=== PATIENT | female | born 1965 | race Caucasian/White ===

== ENCOUNTER 2019-04-24 19:42 | Observation (INO) ==
[2019-04-24] MEDS ORDERED: SODIUM CHLORIDE 0.9% 1000ML 1,000 ML IV ONE (20:49)
[2019-04-24 21:06] LABS: iSTAT Creatinine 0.5 mg/dl (0.6-1.3); iSTAT Hemoglobin 12.9 g/dl (12.0-16.0); iSTAT Ionized Calcium 1.17 mmol/l (1.12-1.32); iSTAT Potassium 3.9 mEq/L (3.3-5.0)
[2019-04-24 21:24] LABS: Basophils # (auto) 0.02 K/uL (0-0.2); Basophils % (auto) 0.4 %; Eosinophils # (auto) 0.09 K/uL (0-0.5); Eosinophils % (auto) 1.6 %; Hemoglobin 12.9 g/dL (12.0-16.0); Immature Granulocytes # (auto) 0.01 K/uL (0.00-0.02); Immature Granulocytes % (auto) 0.2 %; Lymphocytes # (auto) 2.02 K/uL (1.2-3.4); Lymphocytes % (auto) 36.8 %; Mean Corpuscular Hemoglobin 32.2 pg (25-34); Mean Corpuscular Hgb Conc 33.9 g/dL (32-36); Mean Corpuscular Volume 94.8 fL (80-100); Mean Platelet Volume 11.1 fL (7.4-10.4); Monocytes # (auto) 0.53 K/uL (0.11-0.59); Monocytes % (auto) 9.7 %; Neutrophils # (auto) 2.82 K/uL (1.4-6.5); Neutrophils % (auto) 51.3 %; Platelet Count 226 K/uL (130-400); RDW Coefficient of Variation 12.8 % (11.5-14.5); RDW Standard Deviation 44.5 fL (36.4-46.3); Red Blood Count 4.01 M/uL (4.2-5.4); White Blood Count 5.49 K/uL (4.8-10.8)
[2019-04-24 21:41] LABS: Albumin Level 3.8 gm/dl (3.4-5.0); BUN Creatinine Ratio 18.7 (10-20); Calcium 8.8 mg/dl (8.5-10.1); Creatinine Clr Calc Pharmacy 111.1 ml/min; Est GFR (African American) 115.3; Est GFR (Non-African American) 99.4; Potassium 3.9 mmol/L (3.5-5.1)
[2019-04-24 21:44] LABS: Albumin Globulin Ratio 1.2 (0.9-2); Bilirubin,Total 0.2 mg/dl (0.2-1); Globulin 3.2 gm/dl (2.5-4.0)
--- NOTE | 2019-04-24 21:51 | History & Physical Report ---
Date of Service April 24, 2019 Assessment & Plan (1) Vaginal bleeding: (2) Postoperative vaginal bleeding following genitourinary procedure: discussed with patient that given findings, i feel its prudent to do eua and will need to find bleeding source to repair. she ate last at 7pm. she is aware it is possible she will need laparoscopy as well. I doubt intraperitoneal bleeding given her abdominal exam and no symptoms. I suspect the blood vessel is loose at the cuff and hopeful can be managed with vaginal repairs alone. She is agreeable. Discussed management of constipation. She will be readied for OR. Or and anesthesia aware. Consent reviewed and signed. Discussed risks, alternatives and complications to include but not limited to bleeding, infection, anesthesia, injury to bowel, bladder, vessels, nerves, ureters, delayed complications, additional procedures or hospitalizations needed, deep venous thrombosis or pulmonary embolism, need for further surgeries or procedures. History of Present Illness Chief Complaint: vaginal bleeding Primary Care Provider: JENNIFER REN 53yo who presents to ER with above CC who I am asked to see in consult by Dr. Billings. Patient notes recent dx of endometrial cancer with TLH/BSO and node sampling done in [place], [place] by [facility] oncology. She had her 2 week postoperative visit and was doing well. She then noted some spotting that was light for past 10d and then today she strained with a bowel movement this am. She was coming for a visit here to see her daughter who now lives in [place]. By noon today she began bleeding heavily with plum sized clots and pad soaking. She has been compliant with not having intercourse or using tampons. She did not lift anything heavy. She has been needing senekot to move her bowels and as noted had to strain alot for Bm this am. She presented to ER and ER physician called me asking for us to come do an exam. Her istat hgb was 12. Her vitals were ok, although tachycardia noted. Patient notes she is taking lovenox prophylaxis and last injection was this am. She notes her final pathology did not show spread of cancer and she requires no further treatment of cancer. PMH: neg PSH: wisdom teeth, ankle and leg surgery, d&c, tlh/bso/nodes, jaw surgery OBH: x 3 sab x 3 GYNH: nl paps, no stds, menopause age 50, pmb recently wtih above dx and trt SH: no tob/etoh/drugs Allergies Allergy/AdvReac Type Severity Reaction Status Date / Time No Known Allergies Allergy Unverified 04/24/19 22:25 Home Medications Home Medications Medication Instructions Recorded Confirmed Type cholecalciferol (vitamin D3) 0 unit PO DAILY 04/24/19 04/24/19 History [Vitamin D3] enoxaparin [Lovenox] 40 mg SUBCUT DAILY 04/24/19 04/24/19 History ibuprofen 800 mg PO Q8 PRN 04/24/19 04/24/19 History sennosides [senna] 8.6 mg PO DAILY 04/24/19 04/24/19 History Patient History Medical History Endometrial cancer Surgical History H/O: hysterectomy Social History Preferred Language: Syriac Feels Safe at Home: Yes Smoking Status: Never smoker Review of Systems no fever, no chills, no fatigue and no anorexia no cp or sob no chest pain + constipation; no abdominal pain, no nausea and no vomiting + abnormal vaginal bleeding; no dysuria, no urinary frequency and no urinary urgency no problem reported no problem reported as per Subjective / HPI Physical Exam Constitutional: WD/WN, vitals as above Gastrointestinal (Abdomen): Inspection/Auscultation: + abdominal surgical incision (healing incisions, bruising c/w lovenox sites) Percussion/Palpation: abdomen soft (obese); abdomen nontender, no guarding and no hepatosplenomegaly Neurologic: grossly normal Psychiatric: A+Ox3, euthymic affect Genitourinary: normal external appearance Speculum/Bimanual Exam: + cervix absent; + abnormal appearance of the vagina (plum size clot a introitus, cuff with active bleeding, trickling) bme not done Results & Data Vital Signs (Past 12 Hours) Vital Signs Temp Pulse Resp BP Pulse Ox 04/24/19 21:40 97 04/24/19 19:53 98.1 F 98 H 16 130/85 97
[2019-04-24] MEDS ORDERED: CEFAZOLIN 3000MG 65 ML IV SCH (22:30)
[2019-04-24] MEDS ORDERED: LACTATED RINGER'S 1,000 ML IV SCH (22:30)
[2019-04-24] MEDS ORDERED: SUCCINYLCHOLINE CHLORIDE 20 MG/ML 10 ML VIAL ONE (22:34)
[2019-04-24] MEDS ORDERED: fentaNYL citrate 100 MCG/2 ML VIAL ONE ×2 (22:34→23:24)
[2019-04-24] MEDS ORDERED: PROPOFOL IV EMULSION 10 MG/ML 20 ML VIAL IV ONE (22:34)
[2019-04-24] MEDS ORDERED: LIDOCAINE HCL 2% 2 ML VIAL/AMP(20MG/ML) INFIL ONE (22:34)
[2019-04-24] MEDS ORDERED: BUPIVACAINE 0.5 % 5 MG/1 ML MPF 30ML VIAL ONE (22:48)
--- NOTE | 2019-04-24 22:49 | Anesthesiology Consultation ---
Date of Service April 24, 2019 Assessment & Plan (1) Encounter for pre-operative examination: Chart Review Chart Review: Acceptable Risk for Surgery Consults Requested none ASA [id number] Proposed Anesthesia Anesthesia Type: General Risk / Benefits Reviewed With: PT / POA / Parent / Guardian, Accepts Plan and Informed Consent Obtained History Surgery Operation Date: 04/24/19 10:00 Proposed Procedures p Dilatation and Curettage - Fatou Chery MD, FACOG Height/Weight Height: 5 ft 4 in Weight: 100.6 kg Allergies Allergy/AdvReac Type Severity Reaction Status Date / Time No Known Allergies Allergy Unverified 04/24/19 22:25 Medications Home Medications Medication Instructions Recorded Confirmed Last Taken cholecalciferol (vitamin D3) 0 unit PO DAILY 04/24/19 04/24/19 Unknown [Vitamin D3] enoxaparin [Lovenox] 40 mg SUBCUT DAILY 04/24/19 04/24/19 04/24/19 08:00 ibuprofen 800 mg PO Q8 PRN 04/24/19 04/24/19 04/24/19 17:30 sennosides [senna] 8.6 mg PO DAILY 04/24/19 04/24/19 Unknown Past Medical History Medical History Endometrial cancer Obesity Exercise / Class Metabolic Activity II 4-5 Yardwork/Stairs/Walk up hill Past Surgical History Surgical History H/O: hysterectomy Past Anesthesia History No Hx of Anesthesia Complications and No Family Hx of Anesthesia Complications History of PONV No Hx of PONV and No Hx of Motion Sickness Social History Smoking Status: Never smoker Physical Exam Vital Signs Last Vital Signs Temp 98.1 F 04/24/19 19:53 Pulse 76 04/24/19 22:33 Resp 16 04/24/19 22:33 BP 129/79 04/24/19 22:33 Pulse Ox 98 04/24/19 22:33 ENMT Mouth: no dentition abnormality Thyromental Distance: > or= 3.5 Finger Breadths Mallampati Class: I Neck normal visual inspection Respiratory normal respiratory effort Auscultation: lungs clear to auscultation bilaterally Cardiovascular Rate/Rhythm: regular rate and regular rhythm Testing Laboratory Results 04/24/19 20:49 04/24/19 20:49 Blood Type O Positive 04/24/19 20:49 Antibody Screen NEGATIVE 04/24/19 20:49 04/24/19 20:52 POC Glucose (other) 115 H
[2019-04-24] MEDS ORDERED: ONDANSETRON INJ 2 MG/ML 2 ML VIAL IV PRN (22:50)
[2019-04-24] MEDS ORDERED: ePHEDrine sulfate 50 MG/ML AMP IV PRN (22:50)
[2019-04-24] MEDS ORDERED: ATROPINE SULFATE 0.1 MG/ML 10ML SYR IV PRN (22:50)
[2019-04-24] MEDS ORDERED: fentaNYL citrate 100 MCG/2 ML VIAL IV PRN (22:50)
[2019-04-24] MEDS ORDERED: CEFAZOLIN 250 MG/ML 1 GM VIAL ONE (23:10)
[2019-04-24] MEDS ORDERED: ONDANSETRON INJ 2 MG/ML 2 ML VIAL ONE (23:17)
[2019-04-24] MEDS ORDERED: FERRIC SUBSULFATE 8 GM VIAL ONE (23:56)
--- NOTE | 2019-04-25 00:20 | Post Operative Brief Note ---
PG Immediate Post Op with CF Date of Surgery April 25, 2019 Pre & Post Diagnosis Operation Date: 04/24/19 10:00 Pre-Op Diagnosis: Vaginal Cuff Bleeding, postop from hysterectomy Post-Op Diagnosis: Same I identified the patient and participated in the time-out.: Yes Procedure Operation Date: 04/24/19 10:00 Actual Procedures p Exam Under Anesthesia and Diagnostic Laparoscopy, Application of hemostatic agent to vaginal cuff - Fatou Chery MD, FACOG Surgeon Fatou Chery MD, FACOG Cotton Broker RN Estimated Blood Loss 1 Findings See Below initially cuff oozing at angles but after bladder decompressed no active bleeding noted. palpably intact cuff. laparoscopy done with no evidence of bleeding at cuff or intraperitoneally at all. liver edge seen. upper right omental adhesions noted. Fluids 1000 Specimens Specimen Description: No Specimen Anesthesia Type General Complications none Disposition Accompanied Patient To Recovery: No Disposition: Recovery Room
[2019-04-25] MEDS ORDERED: ROCURONIUM BROMIDE 10 MG/ML 5 ML VIAL ONE (00:21)
[2019-04-25] MEDS ORDERED: POLYETHYLENE (MIRALAX) 17 GM PACK PO PRN (00:34)
[2019-04-25] MEDS ORDERED: ONDANSETRON INJ 2 MG/ML 2 ML VIAL IV PRN (00:34)
[2019-04-25] MEDS ORDERED: ACETAMINOPHEN 325 MG TAB PO PRN (00:34)
--- NOTE | 2019-04-25 00:37 | Anesthesiology Progress Note ---
Date of Service April 25, 2019 Anesthesia Post Procedure Vital Signs Vital Signs: Temp Pulse Pulse Resp BP BP Pulse Ox 04/25/19 00:29 97.5 F L 81 16 120/85 100 04/24/19 22:33 76 16 129/79 98 04/24/19 21:40 97 04/24/19 19:53 98.1 F 98 H 16 130/85 97 Transfer of Care Handoff Completed per policy Notes Mental Status: alert / awake / arousable and participated in evaluation Patient Amnestic to Procedure: Yes Nausea / Vomiting: adequately controlled Pain: adequately controlled Airway Patency, RR, SpO2: stable & adequate BP & HR: stable & adequate Hydration State: stable & adequate Anesthetic Complications: no major complications apparent and Pt Satisfied with anesthetic care
--- NOTE | 2019-04-25 00:38 | Operative Report ---
PG Post Operative Report Pre & Post Diagnosis Operation Date: 04/24/19 10:00 Pre-Op Diagnosis: Vaginal Cuff Bleeding, S/P recent total laparoscopic hysterectomy Post-Op Diagnosis: Same I identified the patient and participated in the time-out.: Yes Procedure Operation Date: 04/24/19 10:00 Actual Procedures p Exam Under Anesthesia and Diagnostic Laparoscopy, Application of hemostatic agent to vaginal cuff Surgeon Fatou Chery MD, FACOG Horse Stud Manager RN Estimated Blood Loss 1 Findings See Below Fluids 1000 Specimens none Drains none Anesthesia Type General Complications none Disposition Accompanied Patient To Recovery: No Disposition: Recovery Room Indications 53-year-old 6 para 3 who presented emergency room with acute vaginal bleeding with a history significant for total laparoscopic hysterectomy ion 04/01/2019 for endometrial cancer. The patient noted since noon today, persistent vaginal bleeding with passage of multiple plum-sized clots from the vagina. In the morning she had an episode of straining with bowel movement. She is from [facility] but is here visiting her daughter. She did see her surgeons locally at the 2-week prasad, not having any issues. On her evaluation in the emergency room she was noted to have persistent bleeding within the vagina that was bright red. It was recommended that she undergo an evaluation of the bleeding under anesthesia with possible laparoscopy and she agreed. Consent forms were signed. See the history and physical for more detail. Description of Procedure The patient was taken to the operating room and identified. After adequate general anesthesia was obtained she was placed in the dorsal lithotomy position and prepped and draped in usual sterile fashion. A Dennis catheter was placed with drainage of clear yellow urine. Inspection of the vagina using retractors as well as a speculum at first revealed blood within the vagina and a small plum sized clot. Once this was cleared, trickling of blood was noted from the lateral aspects of the cuff. However this seemed to disappear as the bladder drained about 900cc of urine. The cuff was palpated and was notably intact. Bleeding sites were searched for however they were not seen. No active bleeding was seen. The speculum was removed. With more time it was reinserted and no active bleeding was noted. The speculum was moved in different directions and there was no blood collection. The patient was taken out Trendelenburg positioning to see if that noted more bleeding and it did not. At this point because no active bleeding was noted the decision was made to proceed with laparoscopy to evaluate for bleeding intraperitoneally. Attention was then turned to the patient's abdomen where a supraumbilical skin incision with a scalpel. The verees needle was placed intraperitoneally with an opening pressure of 5 mmHg. A CO2 pneumoperitoneum was created. The optical 12 mm trocar was placed intraperitoneally. The patient was placed in steep Trendelenburg. A 5 mm trocar site left of the midline was created by first creating a skin incision with the scalpel and then placing under direct visualization a 5 mm trocar. Using an atraumatic grasper from the site the bowel was teased away from the vaginal cuff and the cuff was inspected at length. There was no evidence of bleeding whatsoever. The abdomen was decompressed and there was no evidence of bleeding. A vaginal exam was performed simultaneously to put pressure on the cuff and there was no evidence of any intraperitoneal bleeding nor vaginal bleeding. At this point patient was returned to the supine position after the laparoscope and camera removed from the abdomen. The trocars remained in place. The vaginal cuff was reinspected. There is no active bleeding noted. Through all this time during laparoscopy there was no collection of blood in the vagina. The angles of the vaginal cuff were identified and they were grasped with Allis clamps to allow for better visualization and there was no bleeding noted. At this point Monsel solution was applied to the vaginal cuff as considerable time had passed and there was no evidence of continued bleeding. The Dennis catheter was removed and again notably had 900 cc of clear yellow urine within it. The CO2 gas was allowed to escape from the abdomen and the laparoscopic trocars were removed. The subcutaneous fat at the supraumbilical skin incision site was reapproximated with 0 Vicryl and all skin incisions were closed with 4-0 Vicryl in a subcuticular fashion. Incisions were injected with Marcaine and dressed with Dermabond. Patient was returned to the supine position and awoken from anesthesia. She was transferred to the recovery room in stable condition. All sponge lap needle counts are correct x2 I attest to the content of the Intraoperative Record and any orders documented therein. Any exceptions are noted below.
[2019-04-25] MEDS ORDERED: LACTATED RINGER'S 1,000 ML IV SCH (00:45)
[2019-04-25 02:13] LABS: Hematocrit (blood only) 34.4 % (37-47); Hemoglobin 11.5 g/dL (12.0-16.0)
--- NOTE | 2019-04-25 08:00 | Gynecologic Progress Note ---
Date of Service April 25, 2019 Assessment & Plan (1) Vaginal bleeding: (2) Status post hysterectomy: no bleeding for past 8hrs. will allow regular diet. next hgb pending. hold lovenox. will contact francisco mann her [facility] machine operator onc with update if i am able [phone]. plan d/c home after hgb back. Subjective doing well. no vaginal bleeding whatsoever since OR. voiding, ambulating, no n/v. no cp/sob. sim liquids. Physical Exam Constitutional: WD/WN, vitals as above Gastrointestinal (Abdomen): Inspection/Auscultation: + abdominal surgical incision (c/d/i) Percussion/Palpation: abdomen soft; abdomen nontender and no guarding Genitourinary: perineal pad is dry, no blood Results & Data Vital Signs (Past 12 Hours) Vital Signs Temp Pulse Pulse Resp BP Pulse Ox 04/25/19 04:25 97.7 F 63 16 102/62 98 04/25/19 03:10 97.3 F L 65 18 106/68 96 04/25/19 02:10 97.3 F L 60 18 107/63 97 04/25/19 01:45 97.3 F L 60 18 109/71 97 04/25/19 01:15 97.3 F L 63 16 109/68 98 04/25/19 00:45 97.7 F 79 16 115/75 96 04/25/19 00:37 72 16 118/84 99 04/25/19 00:29 97.5 F L 81 16 120/85 100 04/24/19 22:33 76 16 129/79 98 04/24/19 21:40 97 PG Care Time/CCT Total # of Minutes Spent Total Time Spent with Patient: Total time spent is greater than 50% in coordination of care (as documented) at patient's floor/unit and/or counseling patient:
--- NOTE | 2019-04-25 08:02 | Anesthesiology Progress Note ---
Date of Service April 25, 2019 Anesthesia Post Procedure Vital Signs Vital Signs: Temp Pulse Pulse Pulse Resp BP BP 04/25/19 04:25 36.5 C 63 16 102/62 04/25/19 03:10 36.3 C L 65 18 106/68 04/25/19 02:10 36.3 C L 60 18 107/63 04/25/19 01:45 36.3 C L 60 18 109/71 04/25/19 01:15 36.3 C L 63 16 109/68 04/25/19 00:45 36.5 C 79 16 115/75 04/25/19 00:37 72 16 118/84 04/25/19 00:29 36.4 C L 81 16 120/85 04/24/19 22:33 76 16 129/79 04/24/19 21:40 04/24/19 19:53 36.7 C 98 H 16 130/85 Pulse Ox 04/25/19 04:25 98 04/25/19 03:10 96 04/25/19 02:10 97 04/25/19 01:45 97 04/25/19 01:15 98 04/25/19 00:45 96 04/25/19 00:37 99 04/25/19 00:29 100 04/24/19 22:33 98 04/24/19 21:40 97 04/24/19 19:53 97 Notes Mental Status: alert / awake / arousable and participated in evaluation Patient Amnestic to Procedure: Yes Nausea / Vomiting: adequately controlled Pain: adequately controlled Airway Patency, RR, SpO2: stable & adequate BP & HR: stable & adequate Hydration State: stable & adequate Anesthetic Complications: no major complications apparent and Pt Satisfied with anesthetic care
[2019-04-25 09:00] LABS: Hematocrit (blood only) 35.4 % (37-47); Hemoglobin 11.7 g/dL (12.0-16.0)
--- NOTE | 2019-04-25 10:48 | Emergency Department Note ---
Entered by Vanessa Gupta acting as a scribe for Caesar Billings MD History of Present Illness General Chief complaint: Vaginal Bleeding Stated complaint: VAGINAL BLEEDING Time Seen by Provider: 04/24/19 20:36 Source: patient Limitations: no limitations History of Present Illness Onset (ago): hour(s) (today) Location: genitals (vagina) Severity: severe (heavy) Pain Consistency: + other (worsening) Maximum Pain Intensity: 0 Quality: + other (bleeding) Associated symptoms: + denies other symptoms (SOB, chest pain, recent intercourse, trauma, fever, and urinary symptoms) and + other (lightheadedness) The patient is a 53 year old female who presents to the Emergency Room with co mplaints of vaginal bleeding that worsened today. She reports that she had a hysterectomy for endometrial cancer that was done robotically through the abdomen about one month ago. The patient states that she began bleeding lightly one week ago, but the bleeding worsened today while she was riding in a car. She complains that she's bleeding heavily, noting that she's changing pads about once an hour and passing clots. The patient complains of lightheadedness. She denies any SOB, chest pain, recent intercourse, trauma, fever, and urinary symptoms. The patient notes that she has been taking Lovenox after the surgery, but she was recommended to not take any more doses after today by her surgeon. She notes that she had a post-op checkup with her surgeon, and there were no complications at that time. Home Medications Home Medications Medication Instructions Recorded Confirmed Type cholecalciferol (vitamin D3) 0 unit PO DAILY 04/24/19 04/24/19 History [Vitamin D3] ibuprofen 800 mg PO Q8 PRN 04/24/19 04/24/19 History Allergies Allergy/AdvReac Type Severity Reaction Status Date / Time No Known Allergies Allergy Unverified 04/24/19 22:25 Past Med/Surg History Medical History Endometrial cancer Obesity Surgical History H/O: hysterectomy Social History Preferred Language: Dominican Communication Ability: Effective Commissions Manager Required: No Beliefs That Will Affect Care: None Current Living Situation: Spouse Other Information That Helps Us Care for You: No Feels Safe at Home: Yes Safety Concerns: Feels Safe At This Time Smoking Status: Never smoker Do You Dip or Chew Tobacco: No ; Hx Alcohol Use: Yes Alcohol type: beer and wine Hx Substance Use: No Review of Systems See HPI for pertinent positives & negatives. and A total of 10 systems reviewed and were otherwise negative Physical Exam Vital Signs Vital Signs - 24 hr 04/24/19 19:53 04/24/19 21:40 04/24/19 22:33 Temperature 36.7 C Temperature Source Oral Sepsis Recent Fever Within 48 Hours No Sepsis New/Unexplained Change in Mental Status No Sepsis Action Taken by Nursing No Action Required Pulse Rate 98 H Pulse Rate [Apical] 76 Pulse Rhythm [Apical] Pulse Strength [Apical] Respiratory Rate 16 16 Respiratory Effort / Characteristics Respiratory Depth Blood Pressure 130/85 Blood Pressure [Left Arm] 129/79 Blood Pressure Mean 100 Blood Pressure Mean [Left Arm] 95 Blood Pressure Position [Left Arm] Pulse Oximetry 97 97 98 Oxygen Delivery Method Room Air Room Air Room Air 04/25/19 00:29 Temperature 36.4 C L Temperature Source Oral Sepsis Recent Fever Within 48 Hours Sepsis New/Unexplained Change in Mental Status Sepsis Action Taken by Nursing Pulse Rate Pulse Rate [Apical] 81 Pulse Rhythm [Apical] Regular Pulse Strength [Apical] Normal Respiratory Rate 16 Respiratory Effort / Characteristics Non-Labored Respiratory Depth Normal Blood Pressure Blood Pressure [Left Arm] 120/85 Blood Pressure Mean Blood Pressure Mean [Left Arm] 96 Blood Pressure Position [Left Arm] Lying Pulse Oximetry 100 Oxygen Delivery Method General: Non-ill appearing middle aged female in no acute distress. HEENT: Normal cephalic atraumatic. Pupils are equal round and reactive to light. Extraocular movements are intact. Oropharynx is pink with moist mucous membranes. No swelling of the mouth lips or tongue. Neck: Supple with a midline trachea. No meningeal signs or stiffness, no JVD or bruits. No Stridor. Chest: Clear to auscultation bilaterally. No wheezes or rhonchi. No increased work of breathing. Heart: regular rate and rhythm. Abdomen: Soft nontender, nondistended without rebound guarding or rigidity. Extremities: No cyanosis clubbing or edema. No calf tenderness or asymmetry Spine/Back. Non tender to palpation. No CVA tenderness Skin: Good turgor without rashes. Neurologic exam: Cranial nerves two through 12 are intact. Motor and sensation are intact and symmetrical throughout. Course 2038: The patient was evaluated in room B04B. A complete history and physical exam was performed. 2113: I [facility], about the patient's case. She will further evaluate the patient. 2117: I reevaluated the patient, and she was stable. 2210: I spoke with Dr. Chery, and she stated that she will bring the patient to the OR. Administered Medications Discontinued Medications Acetaminophen (Tylenol) 650 mg PO Q4H PRN PRN Reason: Pain or Fever Stop: 05/25/19 00:33 Last Admin: 04/25/19 02:35 Dose: 650 mg Documented by: [id number] Bupivacaine HCl (Marcaine 0.5% Mpf) Confirm Administered Dose 30 ml .ROUTE .STK- MED ONE Stop: 04/24/19 22:49 Last Admin: 04/25/19 00:15 Dose: 6 ml Documented by: [id number] Ferric Subsulfate (Astringyn) Confirm Administered Dose 8 gm .ROUTE .STK-MED ONE Stop: 04/24/19 23:57 Last Admin: 04/25/19 00:35 Dose: 8 gm Documented by: [id number] Sodium Chloride (Nss 1000ml) 1,000 mls @ 999 mls/hr IV .Q1H1M ONE Stop: 04/24/19 21:49 Last Infusion: 04/24/19 22:03 Dose: 0 mls/hr Documented by: [id number] Admin: 04/24/19 21:01 Dose: 999 mls/hr Documented by: [id number] Cefazolin Sodium (Ancef 3000mg) 65 mls @ 130 mls/hr IV PREOP JAILYN; Protocol Stop: 04/25/19 01:00 Last Admin: 04/24/19 23:12 Dose: 130 mls/hr Documented by: [id number] Lactated Ringer's (Lr) 1,000 mls @ 125 mls/hr IV .Q8H JAILYN Stop: 05/25/19 00:44 Last Infusion: 04/25/19 02:30 Dose: 0 mls/hr Documented by: [id number] Admin: 04/25/19 01:29 Dose: 125 mls/hr Documented by: [id number] Medical Decision Making Differential Diagnosis The differential diagnosis includes: vaginal bleed, post-op complication, anemia, infection, electrolyte or metabolic abnormality. Medical Records Attestation: I reviewed the patient's medical records. Home Medications Current Medication List: was personally reviewed by me Laboratory Data Attestation: I reviewed the patient's lab results. Result diagrams: 04/25/19 08:26 04/24/19 20:49 Lab Results 04/24/19 04/24/19 04/24/19 Range/Units 20:49 20:49 20:49 WBC 5.49 (4.8-10.8) K/uL RBC 4.01 L (4.2-5.4) M/uL Hgb 12.9 (12.0-16.0) g/dL POC Hgb (12.0-16.0) g/dl Hct 38.0 (37-47) % POC Hct (37-47) % MCV 94.8 (80-100) fL MCH 32.2 (25-34) pg MCHC 33.9 (32-36) g/dL RDW Std Deviation 44.5 (36.4-46.3) fL RDW Coeff of Willy 12.8 (11.5-14.5) % Plt Count 226 (130-400) K/uL MPV 11.1 H (7.4-10.4) fL Immature Gran % (Auto) 0.2 % Neut % (Auto) 51.3 % Lymph % (Auto) 36.8 % Bethel % (Auto) 9.7 % Eos % (Auto) 1.6 % Baso % (Auto) 0.4 % Immature Gran # (Auto) 0.01 (0.00-0.02) K/uL Neut # (Auto) 2.82 (1.4-6.5) K/uL Lymph # (Auto) 2.02 (1.2-3.4) K/uL Bethel # (Auto) 0.53 (0.11-0.59) K/uL Eos # (Auto) 0.09 (0-0.5) K/uL Baso # (Auto) 0.02 (0-0.2) K/uL POC Sodium (135-144) mEq/L Sodium 137 (136-145) mmol/L POC Potassium (3.3-5.0) mEq/L Potassium 3.9 (3.5-5.1) mmol/L POC Chloride (101-112) mEq/L Chloride 106 (98-107) mmol/L Carbon Dioxide 23 (21-32) mmol/L POC Total CO2 (24-31) mEq/l Anion Gap 8.0 (3-11) POC Anion Gap (16-25) mmol/L POC BUN (7-18) mg/dl BUN 12 (7-18) mg/dl Creatinine 0.66 (0.6-1.2) mg/dl POC Creatinine (0.6-1.3) mg/dl Est Cr Clr Drug Dosing 111.1 ml/min Est GFR ( Amer) 115.3 Est GFR (Non-Af Amer) 99.4 BUN/Creatinine Ratio 18.7 (10-20) Glucose 115 H (70-99) mg/dl POC Glucose (other) (70-99) mg/dl Calcium 8.8 (8.5-10.1) mg/dl POC Ioniz Calcium Brent (1.12-1.32) mmol/l Total Bilirubin 0.2 (0.2-1) mg/dl AST 21 (15-37) U/L ALT 50 (12-78) U/L Alkaline Phosphatase 96 (45-117) U/L Total Protein 7.0 (6.4-8.2) gm/dl Albumin 3.8 (3.4-5.0) gm/dl Globulin 3.2 (2.5-4.0) gm/dl Albumin/Globulin Ratio 1.2 (0.9-2) Lipase 150 (73-393) U/L Blood Type O Positive Antibody Screen NEGATIVE 04/24/19 Range/Units 20:52 WBC (4.8-10.8) K/uL RBC (4.2-5.4) M/uL Hgb (12.0-16.0) g/dL POC Hgb 12.9 (12.0-16.0) g/dl Hct (37-47) % POC Hct 38 (37-47) % MCV (80-100) fL MCH (25-34) pg MCHC (32-36) g/dL RDW Std Deviation (36.4-46.3) fL RDW Coeff of Willy (11.5-14.5) % Plt Count (130-400) K/uL MPV (7.4-10.4) fL Immature Gran % (Auto) % Neut % (Auto) % Lymph % (Auto) % Bethel % (Auto) % Eos % (Auto) % Baso % (Auto) % Immature Gran # (Auto) (0.00-0.02) K/uL Neut # (Auto) (1.4-6.5) K/uL Lymph # (Auto) (1.2-3.4) K/uL Bethel # (Auto) (0.11-0.59) K/uL Eos # (Auto) (0-0.5) K/uL Baso # (Auto) (0-0.2) K/uL POC Sodium 137 (135-144) mEq/L Sodium (136-145) mmol/L POC Potassium 3.9 (3.3-5.0) mEq/L Potassium (3.5-5.1) mmol/L POC Chloride 104 (101-112) mEq/L Chloride (98-107) mmol/L Carbon Dioxide (21-32) mmol/L POC Total CO2 23 L (24-31) mEq/l Anion Gap (3-11) POC Anion Gap 15.0 L (16-25) mmol/L POC BUN 11 (7-18) mg/dl BUN (7-18) mg/dl Creatinine (0.6-1.2) mg/dl POC Creatinine 0.5 L (0.6-1.3) mg/dl Est Cr Clr Drug Dosing ml/min Est GFR ( Amer) Est GFR (Non-Af Amer) BUN/Creatinine Ratio (10-20) Glucose (70-99) mg/dl POC Glucose (other) 115 H (70-99) mg/dl Calcium (8.5-10.1) mg/dl POC Ioniz Calcium Brent 1.17 (1.12-1.32) mmol/l Total Bilirubin (0.2-1) mg/dl AST (15-37) U/L ALT (12-78) U/L Alkaline Phosphatase (45-117) U/L Total Protein (6.4-8.2) gm/dl Albumin (3.4-5.0) gm/dl Globulin (2.5-4.0) gm/dl Albumin/Globulin Ratio (0.9-2) Lipase (73-393) U/L Blood Type Antibody Screen Blood Pressure Blood Pressure Findings: Elevated blood pressure Blood Pressure Disposition: elevated BP felt to be situational MDM Narrative This patient comes in after having significant vaginal bleeding after having a hysterectomy almost a month ago. The bleeding started heavy today where she has been passing clots and changing a tampon an hour. She feels slightly dizzy but is hemostatically stable. She has no significant abdominal pain. She has no fever or anything to suggest infection. IV access was established and blood work was obtained. she was typed and screened. Her initial i-STAT hemoglobin was 12.7. She has no acute electrolyte or metabolic abnormality. I did consult Dr. Chery from [facility] to see the patient in the ER as there was concern from a postop bleeding issue. There is bleeding from the vaginal cuff and she is going to take her to the operating room for further evaluation and treatment. Impression & Plan Vaginal bleeding, Status post hysterectomy, Postoperative vaginal bleeding following genitourinary procedure Discharge Plan Visit Data Chief Complaint: Vaginal Bleeding Stated Complaint: VAGINAL BLEEDING ED Provider: Caesar Billings Discharge Problem: Vaginal bleeding, Status post hysterectomy, Postoperative vaginal bleeding following genitourinary procedure Patient Disposition: Being Evaluated by Surgeon Discharge Instructions Interventions: ED Discharge Assessment Last Done: 04/24/19 22:43 The scribe's documentation has been prepared under my direction and personally reviewed by me in its entirety. I confirm that the note above accurately reflects all work, treatment, procedures, and medical decision making performed by me.
--- NOTE | 2019-04-26 14:23 | Discharge Summary ---
Date of Service Day of admission: April 24, 2019 Day of discharge: April 25, 2019 Admission HPI Per Admitting Provider 53yo who presents to ER with CC of heavy vaginal bleeding who I am asked to see in consult by Dr. Billings. Patient notes recent diagnosis of endometrial cancer with TLH/BSO and node sampling done in [place], [place] by [employer] oncology. She had her 2 week postoperative visit and was doing well. She then noted some spotting that was light for past 10d and then today she strained with a bowel movement this am. She was coming for a visit here to see her daughter who now lives in [place]. By noon today she began bleeding heavily with plum sized clots and pad soaking. She notes passing clots too innumerable to count since that time. She has been compliant with not having intercourse or using tampons. She did not lift anything heavy. She has been needing senekot to move her bowels and as noted had to strain alot for Bm this am. She presented to ER and ER physician called me asking for us to come do an exam. Her i-stat hgb was 12. Her vitals were ok, although tachycardia noted. Patient notes she is taking lovenox prophylaxis and last injection was this am. She notes her final pathology did not show spread of cancer and she requires no further treatment of cancer. PMH: neg PSH: wisdom teeth, ankle and leg surgery, d&c, tlh/bso/nodes, jaw surgery OBH: x 3 sab x 3 GYNH: nl paps, no stds, menopause age 50, pmb recently wtih above dx and trt SH: no tob/etoh/drugs Discharge Data Procedures Performed Operation Date: 04/24/19 10:00 Actual Procedures p Exam Under Anesthesia and Diagnostic Laparoscopy, application of hemostatic agent to vaginal cuff - Fatou Chery MD, FACOG Hospital Course (1) Vaginal bleeding: (2) Postoperative vaginal bleeding following genitourinary procedure: The patient was taken to the operating room for above stated procedures. Please see operative note for details. Due to the bleeding, without identifiable source, she was kept for observation to monitor for further bleeding. Serial hemoglobins were stable. Absolutely no further bleeding was noted postoperatively. She was discharged to home on her postoperative day #0. Her [employer] oncologist was notified of her course and recommended she stop her lovenox and that was conveyed to patient via phone call. She was given discharge instructions and was to see her [place] physicians next week. She was advised to soften stool and methods to do so. She did not want stronger pain meds for her postoperative pain and planned to use motrin and tylenol as needed.
== END 2019-04-25 10:05 | disposition home or self-care (01) ==
LOC: 4N 19:42 → ED 19:42 → 4N 22:43